=== PATIENT | male | born 1990 | race African-American/Black ===

== ENCOUNTER 2020-05-21 09:13 | Emergency (ER) | payer SELFPAY ==
[~2020-05-21] VITALS: Ht 167.6 cm; Wt 64.4 kg
[2020-05-21 09:13] VITALS: BP_SYST 133
[2020-05-21] MEDS ORDERED: NACL 0.9% 1,000 ML IV ONE (09:30)
[2020-05-21 09:50] VITALS: BP_SYST 134
== END 2020-05-21 09:50 | disposition home or self-care (01) ==
LOC: SED 09:13
DX: B00.9 Herpesviral infection, unspecified (principal)
CPT/HCPCS: 99283